=== PATIENT | female | born 1945 | race Caucasian/White ===

== ENCOUNTER 2017-06-20 16:35 | Emergency (ER) | payer MEDICARE | END 2017-06-20 17:20 | disposition home or self-care (01) | LOC: BURERS 16:35 | DX: J06.9 Acute upper respiratory infection, unspecified (principal); J44.9 Chronic obstructive pulmonary disease, unspecified | CPT/HCPCS: 87804; 99283 ==

== ENCOUNTER 2022-09-18 16:14 | Outpatient (CLI) | payer MEDICARE | END 2022-09-18 16:15 | disposition home or self-care (01) | LOC: BURRAD 16:14 | PROVIDERS: ATTEND Family Medicine | DX: J44.9 Chronic obstructive pulmonary disease, unspecified (principal) | CPT/HCPCS: 71046 ==